=== PATIENT | female | born 1980 | race Two or more races ===

== ENCOUNTER 2022-08-13 10:10 | Emergency (ER) | payer OTHER ==
[~2022-08-13] VITALS: Ht 152.4 cm; Wt 64.4 kg
[2022-08-13] MEDS ORDERED: OSEL75CA PO (12:53)
[2022-08-13] MEDS ORDERED: TUSSI PRES-B L480 ML PO (12:56)
== END 2022-08-13 13:16 | disposition home or self-care (01) ==
LOC: ER 10:10
DX: B34.9 Viral infection, unspecified (principal); Z88.6 Allergy status to analgesic agent; Z20.822 Contact with and (suspected) exposure to COVID-19